=== PATIENT | female | born 1945 | race Caucasian/White ===

== ENCOUNTER → 2016-08-23 | Outpatient (CLI) | payer OTHER, MEDICARE ==
[~2016-08-23] MED LIST: ACCURETIC 201 TABLE1 PO; ACTOS30 MG PO; ALPRAZOLAM0.25 M2 PO; ASPIRIN81 M1 PO; BENTYL10 MG PO; Desyrel PO; FENOFIBRATE160 M1 PO; GLYBURIDE MICRON6 MG PO; LIPITOR40 MG PO; LISINOPRIL10 MG PO; LISINOPRIL5 MG PO; Lopressor PO; MELOXICAM7.5 MG PO; METFORMIN HCL500 MG PO; MICRONASE5 MG PO; PERCOCET 5/31 TABLET PO; PIOGLITAZONE HC15 MG PO; PRAVASTATIN SOD80 MG PO; Protonix PO; TRAZODONE HCL50 MG PO; Xanax PO; Zestril,Prinivil PO
== END | disposition home or self-care (01) ==
DX: R13.10 Dysphagia, unspecified (principal); R05 Cough
CPT/HCPCS: 92611 GN; G8996 GN; G8997 GN; G8998 GN